=== PATIENT | male | born 1960 | race Caucasian/White ===

== ENCOUNTER → 2019-07-12 | Outpatient (CLI) | payer OTHER ==
[2019-07-12 18:56] LABS: Iron Saturation 55.32 (15.00-50.00)
== END | disposition home or self-care (01) ==
LOC: LABWHC1 11:41
PROVIDERS: ATTEND Family Medicine
DX: E61.1 Iron deficiency (principal)
CPT/HCPCS: 36415; 83540; 83550

== ENCOUNTER 2020-09-25 08:01 | Emergency (ER) | payer OTHER ==
[2020-09-25 08:05] VITALS: TEMP 97.6
[2020-09-25] MEDS ORDERED: SODIUM CHLORIDE 0.9% 1,000 ML IV STA (08:21)
--- NOTE | 2020-09-25 08:28 | ED ---
Dizziness HPI - General Chief Complaint: Dizziness Stated Complaint: Double Vision, Dizziness Time Seen by Provider: 09/25/20 08:08 Source: patient, family, RN notes reviewed Mode of arrival: ambulatory Limitations: no limitations - History of Present Illness Initial Comments: This is a 60-year-old male with a history of chronic A. 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 He states he's had intermittent episodes this in the past for this was the most prominent.no recent fevers chills nausea vomiting sweats no focal weakness no further symptoms. He does say he's had a vague frontal discomfort to his forehead area he believes secondary to sinuses. No other modifying factors MD Complaint: dizziness, other - Related Data Home Medications Medication Instructions Recorded Confirmed Pravastatin Sodium [Pravachol] 40 mg PO HS 08/23/18 09/25/20 lisinopriL 20 mg PO HS 05/16/19 09/25/20 Apixaban [Eliquis] 2.5 mg PO BID 09/25/20 09/25/20 Previous Rx's Medication Instructions Recorded Amoxicillin/Potassium Clav 1 tab PO Q12HR 1 Days #20 tab 09/25/20 [Augmentin 875-125 Tablet] Meclizine [Antivert] 25 mg PO TID #20 tab 09/25/20 Allergies Allergy/AdvReac Type Severity Reaction Status Date / Time No Known Allergies Allergy Verified 09/25/20 09:06 Review of Systems ROS Statement: Those systems with pertinent positive or pertinent negative responses have been documented in the HPI. ROS Other: All systems not noted in ROS Statement are negative. Past Medical History Past Medical History: GERD/Reflux, Hyperlipidemia, Hypertension Additional Past Medical History / Comment(s): fusion of bicuspid valve History of Any Multi-Drug Resistant Organisms: None Reported Past Surgical History: Appendectomy Additional Past Surgical History / Comment(s): deviated septum repair Past Anesthesia/Blood Transfusion Reactions: No Reported Reaction Past Psychological History: No Psychological Hx Reported Smoking Status: Former smoker Past Alcohol Use History: Occasional Past Drug Use History: None Reported General Exam - General Exam Comments Initial Comments: this is a well-developed well-nourished awake alert oriented times 3 male Limitations: no limitations General appearance: alert, in no apparent distress Head exam: Present: atraumatic, normocephalic, normal inspection Eye exam: Present: normal appearance, PERRL, EOMI. Absent: scleral icterus, conjunctival injection, periorbital swelling ENT exam: Present: normal exam, mucous membranes moist Neck exam: Present: normal inspection, full ROM, other (no stridor JVD or bruits). Absent: tenderness, meningismus, lymphadenopathy Respiratory exam: Present: normal lung sounds bilaterally. Absent: respiratory distress, wheezes, rales, rhonchi, stridor Cardiovascular Exam: Present: normal rhythm, irregular rhythm. Absent: systolic murmur, diastolic murmur, rubs, gallop, clicks GI/Abdominal exam: Present: soft, normal bowel sounds. Absent: distended, tenderness, guarding, rebound, rigid Extremities exam: Present: normal inspection, full ROM, normal capillary refill. Absent: tenderness, pedal edema, joint swelling, calf tenderness Back exam: Present: normal inspection Neurological exam: Present: alert, oriented X3, CN II-XII intact Psychiatric exam: Present: normal affect, normal mood Skin exam: Present: warm, dry, intact, normal color. Absent: rash Course Vital Signs 09/25/20 09/25/20 08:01 09:08 Temperature 97.6 F Pulse Rate 70 57 L Respiratory 18 16 Rate Blood Pressure 169/88 122/70 O2 Sat by Pulse 98 96 Oximetry EKG Findings - EKG Results: EKG: interpreted by OBIE, sinus rhythm (sinus rhythm a 62 CA interval 164 QRS 104 QT/QTC 362/367 nonspecific T-wave configuration inferior leads) Medical Decision Making - Medical Decision Making I did discuss Pfizer the patient's . Patient had no further symptoms. The presentation consistent with a vertiginous etiology. Additionally the patient does demonstrate evidence of sinusitis. He will be placed on appropriate medication is a follow-up with his doctor and return when necessary - Lab Data Result diagrams: 09/25/20 08:38 09/25/20 08:38 Lab Results 09/25/20 09/25/20 09/25/20 Range/Units 08:38 08:38 08:38 WBC 4.9 (3.8-10.6) k/uL RBC 5.20 (4.30-5.90) m/uL Hgb 16.0 (13.0-17.5) gm/dL Hct 47.6 (39.0-53.0) % MCV 91.5 (80.0-100.0) fL MCH 30.7 (25.0-35.0) pg MCHC 33.5 (31.0-37.0) g/dL RDW 13.1 (11.5-15.5) % Plt Count 183 (150-450) k/uL Neutrophils % 60 % Lymphocytes % 22 % Monocytes % 8 % Eosinophils % 7 % Basophils % 2 % Neutrophils # 2.9 (1.3-7.7) k/uL Lymphocytes # 1.1 (1.0-4.8) k/uL Monocytes # 0.4 (0-1.0) k/uL Eosinophils # 0.3 (0-0.7) k/uL Basophils # 0.1 (0-0.2) k/uL Sodium 139 (137-145) mmol/L Potassium 4.2 (3.5-5.1) mmol/L Chloride 108 H (98-107) mmol/L Carbon Dioxide 23 (22-30) mmol/L Anion Gap 8 mmol/L BUN 18 (9-20) mg/dL Creatinine 1.17 (0.66-1.25) mg/dL Est GFR (CKD-EPI)AfAm 79 (>60 ml/min/1.73 sqM) Est GFR (CKD-EPI)NonAf 68 (>60 ml/min/1.73 sqM) Glucose 123 H (74-99) mg/dL Calcium 10.0 (8.4-10.2) mg/dL Magnesium 1.8 (1.6-2.3) mg/dL Total Bilirubin 0.8 (0.2-1.3) mg/dL AST 32 (17-59) U/L ALT 28 (4-49) U/L Alkaline Phosphatase 62 (38-126) U/L Creatine Kinase 108 (55-170) U/L Troponin I <0.012 (0.000-0.034) ng/mL Total Protein 7.4 (6.3-8.2) g/dL Albumin 4.4 (3.5-5.0) g/dL - Radiology Data Radiology results: report reviewed (I did review the imaging and report or is evidence of paranasal ethmoid a mastoid sinusitis.), image reviewed Disposition Clinical Impression: Benign paroxysmal positional vertigo, Sinusitis, acute Disposition: HOME SELF-CARE Condition: Good Instructions (If sedation given, give patient instructions): Dizziness (ED), Rhinosinusitis (ED), Vertigo (ED) Additional Instructions: Description sent here preferred [facility] Prescriptions: Meclizine [Antivert] 25 mg PO TID #20 tab Amoxicillin/Potassium Clav [Augmentin 875-125 Tablet] 1 tab PO Q12HR 1 Days #20 tab Is patient prescribed a controlled substance at d/c from ED?: No Referrals: Twyla Bergeron MD [Primary Care Provider] - 1-2 days
[2020-09-25 08:46] LABS: Basophils # (A) 0.1 k/uL (0-0.2); Basophils % (A) 2 %; Eosinophils # (A) 0.3 k/uL (0-0.7); Eosinophils % (A) 7 %; HCT 47.6 % (39.0-53.0); Lymphocytes # (A) 1.1 k/uL (1.0-4.8); Lymphocytes % (A) 22 %; MCH 30.7 pg (25.0-35.0); MCHC 33.5 g/dL (31.0-37.0); MCV 91.5 fL (80.0-100.0); Mean Platelet Volume 8.3; Monocytes # (A) 0.4 k/uL (0-1.0); Monocytes % (A) 8 %; Neutrophils # (A) 2.9 k/uL (1.3-7.7); Neutrophils % (A) 60 %; Platelet Count 183 k/uL (150-450); RDW 13.1 % (11.5-15.5); WBC 4.9 k/uL (3.8-10.6)
--- NOTE | 2020-09-25 09:03 | CT ---
EXAMINATION TYPE: CT brain wo con DATE OF EXAM: 09/25/2020 COMPARISON: None HISTORY: Dizziness, LY CT DLP: 1229.4 mGycm Automated exposure control for dose reduction was used. Helical imaging through the brain FINDINGS: There is mild cortical atrophy. There is no hemorrhage or hydrocephalus. Calvarium is intact. Paranas al sinuses and mastoid air cells are remarkable for some inflammatory change in ethmoid air cells. Or bits show symmetric appearance. IMPRESSION: MILD SINUS DISEASE. NO ACUTE BRAIN ABNORMALITY EVIDENT.
[2020-09-25 09:06] LABS: Albumin 4.4 g/dL (3.5-5.0); Magnesium 1.8 mg/dL (1.6-2.3); Potassium 4.2 mmol/L (3.5-5.1); Total Bilirubin 0.8 mg/dL (0.2-1.3); Total Protein 7.4 g/dL (6.3-8.2)
[2020-09-25 09:10] VITALS: RESP 16
[2020-09-25 10:23] VITALS: BP 128/71; PULSE 54
== END 2020-09-25 10:31 | disposition home or self-care (01) ==
LOC: EC 08:01
DX: H81.10 Benign paroxysmal vertigo, unspecified ear (principal); J01.90 Acute sinusitis, unspecified; I10 Essential (primary) hypertension; I48.20 Chronic atrial fibrillation, unspecified; E78.5 Hyperlipidemia, unspecified; Z79.01 Long term (current) use of anticoagulants; Z79.899 Other long term (current) drug therapy
CPT/HCPCS: 36415; 70450; 80053; 82550; 83735; 84484; 85025; 93005; 96360; 99284

== ENCOUNTER 2021-03-26 09:26 | Outpatient (CLI) | payer MEDICAID ==
[~2021-03-26 09:26] MED LIST: SODIUM CHLORIDE 0.9% 500 ML 500 ML in EMPTY BAG 1 BAG IV PRN
[2021-03-26 09:45] VITALS: RESP 16; TEMP 97.8
[2021-03-26 10:03] LABS: Basophils # (A) 0.1 k/uL (0-0.2); Basophils % (A) 1 %; Eosinophils # (A) 0.3 k/uL (0-0.7); Eosinophils % (A) 5 %; HCT 44.9 % (39.0-53.0); HGB 15.1 gm/dL (13.0-17.5); Lymphocytes # (A) 1.9 k/uL (1.0-4.8); Lymphocytes % (A) 32 %; MCH 31.3 pg (25.0-35.0); MCHC 33.7 g/dL (31.0-37.0); Mean Platelet Volume 8.5; Monocytes # (A) 0.4 k/uL (0-1.0); Monocytes % (A) 6 %; Neutrophils # (A) 3.4 k/uL (1.3-7.7); Neutrophils % (A) 54 %; Platelet Count 212 k/uL (150-450); RBC 4.83 m/uL (4.30-5.90); RDW 12.6 % (11.5-15.5); WBC 6.2 k/uL (3.8-10.6)
[2021-03-26 10:36] VITALS: BP 119/80; PULSE 55
== END 2021-08-01 08:48 | disposition home or self-care (01) ==
LOC: PROCWHC3 09:26
PROVIDERS: ATTEND Family Medicine
DX: E83.119 Hemochromatosis, unspecified (principal); Z87.891 Personal history of nicotine dependence
CPT/HCPCS: 36415; 82728; 85025; 99195

== ENCOUNTER → 2021-04-11 | Outpatient (CLI) | payer MEDICAID ==
--- NOTE | 2021-04-11 07:30 | US ---
EXAMINATION TYPE: US liver DATE OF EXAM: 04/11/2021 COMPARISON: NONE CLINICAL HISTORY: E83.119 hemochromatosis. EXAM MEASUREMENTS: Liver Length: 15.9 cm Gallbladder Wall: 0.2 cm CBD: 0.3 cm Right Kidney: 11.4 x 5.7 x 4.6 cm Pancreas: wnl tail obscured by overlying bowel gas Liver: wnl Gallbladder: wnl Evidence for sonographic Sellers's sign: no CBD: wnl Right Kidney: wnl IMPRESSION: No distinct abnormality identified at this time.
== END | disposition home or self-care (01) ==
LOC: RADUSWWP 06:56
PROVIDERS: ATTEND Family Medicine
DX: E83.119 Hemochromatosis, unspecified (principal)
CPT/HCPCS: 76705

== ENCOUNTER → 2021-05-07 | Outpatient (CLI) | payer MEDICAID ==
[2021-05-07 09:32] VITALS: RESP 16; TEMP 98
[2021-05-07 09:47] LABS: Basophils # (A) 0.1 k/uL (0-0.2); Basophils % (A) 1 %; Eosinophils # (A) 0.3 k/uL (0-0.7); Eosinophils % (A) 6 %; HCT 46.9 % (39.0-53.0); Lymphocytes # (A) 1.9 k/uL (1.0-4.8); Lymphocytes % (A) 32 %; MCH 31.2 pg (25.0-35.0); MCHC 34.2 g/dL (31.0-37.0); MCV 91.3 fL (80.0-100.0); Mean Platelet Volume 8.3; Monocytes # (A) 0.4 k/uL (0-1.0); Monocytes % (A) 7 %; Neutrophils # (A) 3.1 k/uL (1.3-7.7); Neutrophils % (A) 52 %; Platelet Count 206 k/uL (150-450); RBC 5.13 m/uL (4.30-5.90); RDW 12.5 % (11.5-15.5); WBC 5.9 k/uL (3.8-10.6)
[2021-05-07 10:20] VITALS: BP 120/80; PULSE 58
== END ==
LOC: PROCWHC3 09:22
PROVIDERS: ATTEND Family Medicine
DX: E83.119 Hemochromatosis, unspecified (principal); Z87.891 Personal history of nicotine dependence
CPT/HCPCS: 36415; 82728; 85025; 99195

== ENCOUNTER → 2021-08-19 | Outpatient (CLI) | payer MEDICAID ==
[2021-08-19 09:55] VITALS: TEMP 98
[2021-08-19 10:25] LABS: Basophils # (A) 0.1 k/uL (0-0.2); Basophils % (A) 1 %; Eosinophils # (A) 0.5 k/uL (0-0.7); Eosinophils % (A) 8 %; HCT 47.6 % (39.0-53.0); HGB 16.5 gm/dL (13.0-17.5); Lymphocytes % (A) 31 %; MCH 31.8 pg (25.0-35.0); MCHC 34.6 g/dL (31.0-37.0); MCV 91.8 fL (80.0-100.0); Mean Platelet Volume 8.6; Monocytes # (A) 0.4 k/uL (0-1.0); Monocytes % (A) 6 %; Neutrophils # (A) 3.4 k/uL (1.3-7.7); Neutrophils % (A) 53 %; Platelet Count 220 k/uL (150-450); RBC 5.19 m/uL (4.30-5.90); RDW 12.8 % (11.5-15.5); WBC 6.4 k/uL (3.8-10.6)
[2021-08-19 10:49] VITALS: BP 112/74; PULSE 59; RESP 18
[2021-08-19 10:59] LABS: Albumin 4.4 g/dL (3.5-5.0); Calcium 10.2 mg/dL (8.4-10.2); Potassium 4.8 mmol/L (3.5-5.1); Total Bilirubin 1.1 mg/dL (0.2-1.3); Total Protein 7.2 g/dL (6.3-8.2)
[2021-08-19 21:53] LABS: % Iron Saturation 94.55 (15.00-50.00); Chol/HDL Ratio 3.31
[2021-08-19 22:01] LABS: Ferritin 36.9 ng/mL (22.0-322.0)
== END ==
LOC: PROCWHC3 09:28
PROVIDERS: ATTEND Family Medicine
DX: E83.119 Hemochromatosis, unspecified (principal); Z87.891 Personal history of nicotine dependence
CPT/HCPCS: 36415; 80053; 80061; 82728; 83540; 83550; 84443; 85025; 99195

== ENCOUNTER → 2021-10-16 | Outpatient (CLI) | payer MEDICAID ==
[2021-10-16 10:41] VITALS: BP 131/73; PULSE 59; RESP 16; TEMP 97.8
[2021-10-16 11:02] LABS: HCT 48.9 % (39.0-53.0); MCH 32.6 pg (25.0-35.0); MCHC 34.7 g/dL (31.0-37.0); MCV 93.9 fL (80.0-100.0); Mean Platelet Volume 8.8; Platelet Count 216 k/uL (150-450); RDW 12.4 % (11.5-15.5)
== END ==
LOC: PROCWHC3 10:28
PROVIDERS: ATTEND Family Medicine
DX: E83.119 Hemochromatosis, unspecified (principal); Z87.891 Personal history of nicotine dependence
CPT/HCPCS: 36415; 85027; 99195

== ENCOUNTER → 2022-07-02 | Outpatient (CLI) | payer MEDICAID ==
[2022-07-02 08:47] VITALS: RESP 16; TEMP 98.3
[2022-07-02 08:56] LABS: HCT 43.3 % (39.0-53.0); MCH 33.1 pg (25.0-35.0); MCHC 34.6 g/dL (31.0-37.0); MCV 95.6 fL (80.0-100.0); Mean Platelet Volume 8.9; Platelet Count 200 k/uL (150-450); RBC 4.53 m/uL (4.30-5.90); RDW 12.5 % (11.5-15.5)
[2022-07-02 09:35] VITALS: BP 128/75; PULSE 50
== END ==
LOC: PROCWHC3 08:33
PROVIDERS: ATTEND Family Medicine
DX: E83.119 Hemochromatosis, unspecified (principal); Z87.891 Personal history of nicotine dependence
CPT/HCPCS: 36415; 85027; 99195

== ENCOUNTER → 2022-08-18 | Outpatient (CLI) | payer MEDICAID | END | disposition home or self-care (01) | LOC: LABWHC1 07:42 | PROVIDERS: ATTEND Internal Medicine Interventional Cardiology | DX: Z53.9 Procedure and treatment not carried out, unspecified reason (principal) ==

== ENCOUNTER → 2023-09-02 | Outpatient (CLI) | payer MEDICAID ==
--- NOTE | 2023-09-02 09:15 | CT ---
EXAMINATION TYPE: CT sinus wo con CT DLP: 641.6 mGycm, Automated exposure control for dose reduction was used. DATE OF EXAM: 09/02/2023 8:10 AM COMPARISON: 09/25/2020 CT CLINICAL INDICATION:Male, 63 years old with history of J32.9 CHRONIC SINUSITIS, UNSPECIFIED; , chroni c sinusitis TECHNIQUE: Multiple thin axial images were obtained through the paranasal sinuses without the use of IV contrast. Additional coronal and sagittal reformatted images were submitted for evaluation. Contrast used: none Oral contrast used: none FINDINGS: Frontal sinuses: Normally developed with mucosal thickening most pronounced inferiorly and anteriorly .. Frontal Recess: Opacified bilaterally Maxillary Sinuses: Antrostomy changes bilaterally. Mucosal thickening of the left maxillary sinus. Maxillary Infundibula([facility]): Antrostomy changes bilaterally Ethmoid sinuses: Few opacified ethmoid air cells are present. Ethmoidal notch: Unprotected bilateral anterior ethmoidal arteries. Sphenoid sinuses: Normally developed and aerated. There is sellar sphenoid sinus pneumatization witho ut evidence of dehiscence. There is pneumatization of the anterior clinoid processes. No dehiscence o f carotid canal. No evidence of optic nerve dehiscence within the sphenoid sinus. No evidence of Onod i cells. Sphenoethmoidal recesses: Clear. Nasal septum: Within normal limits.. Nasal Turbinates: Within normal limits. Mastoid air cells & middle ears: The air cells are clear. The middle ears are grossly unremarkable. Modified Soft tissues & Brain: Partially seen without gross abnormality. Globes are intact. Other: Cribriform plate demonstrates symmetric Keros classification type 2 cribriform plate. No evidence of bony dehiscence of skull base. Lamina papyracea is intact without evidence of remote orbital fracture or orbital prolapse into the e thmoid sinus. IMPRESSION: Mild paranasal sinus disease with opacification of the bilateral frontal ethmoidal recesses. There is an antrostomy changes to the maxillary sinuses with mucosal thickening of the left maxillary sinus.
[2023-09-02 13:51] LABS: Basophils # (A) 0.11 X 10*3/uL (0.00-0.10); Basophils % (A) 1.6 %; Eosinophils % (A) 5.8 %; HCT 46.1 % (39.6-50.0); HGB 15.8 d/dL (13.0-17.0); Lymphocytes # (A) 2.18 X 10*3/uL (0.90-5.00); Lymphocytes % (A) 31.8 %; MCH 32.3 pg (27.0-32.0); MCHC 34.3 d/dL (32.0-37.0); MCV 94.3 FL (80.0-97.0); Mean Platelet Volume 10.6 FL (9.5-12.2); Monocytes # (A) 0.59 X 10*3/uL (0.20-1.00); Monocytes % (A) 8.6 %; NRBC Per 100 WBC 0 X 10*3/uL (0.00-0.01); Neutrophils # (A) 3.54 X 10*3/uL (1.80-7.70); Neutrophils % (A) 51.6 %; Platelet Count 259 X 10*3/uL (140-440); RBC 4.89 X 10*6/uL (4.40-5.60); RDW 11.9 % (11.5-14.5); WBC 6.86 X 10*3/uL (4.50-10.00)
[2023-09-02 13:58] LABS: % Iron Saturation 60.08 (15.00-50.00)
== END | disposition home or self-care (01) ==
LOC: RADCTMAIN 07:52
PROVIDERS: ATTEND Family Medicine
DX: J34.89 Other specified disorders of nose and nasal sinuses (principal); J32.0 Chronic maxillary sinusitis
CPT/HCPCS: 70486; 82728; 83540; 83550; 85025

== ENCOUNTER 2023-10-12 06:01 | Day surgery (SDC) | payer MEDICAID ==
[2023-10-12] MEDS ORDERED: LIDOCAINE 1% (10MG/ML) FOR IV START INTRADERMA PRN (06:40)
[2023-10-12] MEDS ORDERED: LACTATED RINGERS 1,000 ML IV SCH (06:40)
[2023-10-12 07:22] VITALS: BP 159/79; PULSE 57; RESP 16; TEMP 97.8
== END 2023-10-12 07:12 ==
LOC: OR 06:01
PROVIDERS: ATTEND Internal Medicine Cardiovascular Disease
DX: I35.2 Nonrheumatic aortic (valve) stenosis with insufficiency (principal)

== ENCOUNTER → 2023-10-21 | Outpatient (CLI) | payer MEDICAID ==
[2023-10-21 19:19] LABS: Basophils # (A) 0.07 X 10*3/uL (0.00-0.10); Basophils % (A) 1.1 %; Eosinophils # (A) 0.37 X 10*3/uL (0.04-0.35); Eosinophils % (A) 5.8 %; HCT 45.9 % (39.6-50.0); HGB 15.9 g/dL (13.0-17.0); Lymphocytes # (A) 2.07 X 10*3/uL (0.90-5.00); Lymphocytes % (A) 32.4 %; MCH 32.6 pg (27.0-32.0); MCHC 34.6 g/dL (32.0-37.0); MCV 94.3 FL (80.0-97.0); Mean Platelet Volume 10.6 FL (9.5-12.2); Monocytes # (A) 0.51 X 10*3/uL (0.20-1.00); NRBC Per 100 WBC 0 X 10*3/uL (0.00-0.01); Neutrophils # (A) 3.35 X 10*3/uL (1.80-7.70); Neutrophils % (A) 52.5 %; Platelet Count 205 X 10*3/uL (140-440); RBC 4.87 X 10*6/uL (4.40-5.60); WBC 6.38 X 10*3/uL (4.50-10.00)
[2023-10-21 20:34] LABS: % Iron Saturation 48.55 (15.00-50.00); Ferritin 72.7 ng/mL (22.0-322.0)
== END | disposition home or self-care (01) ==
LOC: LABWHC1 13:16
PROVIDERS: ATTEND Family Medicine
DX: E83.119 Hemochromatosis, unspecified (principal)
CPT/HCPCS: 36415; 82728; 83540; 83550; 85025

== ENCOUNTER 2024-01-04 06:04 | Day surgery (SDC) | payer MEDICAID, OTHER ==
[2023-12-29 11:12] VITALS: BMI 30.5
[~2024-01-04 06:04] MED LIST changes: +LACTATED RINGERS 1,000 ML IV SCH; +SODIUM CHLORIDE 0.9% 1,000 ML IV SCH; -SODIUM CHLORIDE 0.9% 500 ML 500 ML in EMPTY BAG 1 BAG IV PRN
[2024-01-04 07:20] VITALS: BP 110/64; PULSE 54; RESP 16; TEMP 97
== END 2024-01-04 07:11 ==
LOC: OR 06:04
PROVIDERS: ATTEND Internal Medicine Cardiovascular Disease
DX: Z53.8 Procedure and treatment not carried out for other reasons (principal); I48.0 Paroxysmal atrial fibrillation; E78.5 Hyperlipidemia, unspecified; I10 Essential (primary) hypertension; F17.210 Nicotine dependence, cigarettes, uncomplicated; Z82.49 Family history of ischemic heart disease and other diseases of the circulatory system; Z79.01 Long term (current) use of anticoagulants; Z79.899 Other long term (current) drug therapy

== ENCOUNTER → 2024-04-11 | Outpatient (CLI) | payer OTHER ==
[~2024-04-11] MED LIST changes: -LACTATED RINGERS 1,000 ML IV SCH; -SODIUM CHLORIDE 0.9% 1,000 ML IV SCH; +SODIUM CHLORIDE 0.9% 500 ML 500 ML in EMPTY BAG 1 BAG IV PRN
[2024-04-11 12:26] LABS: HCT 51.9 % (39.0-53.0); HGB 17.4 gm/dL (13.0-17.5); MCHC 33.4 g/dL (31.0-37.0); MCV 95.8 fL (80.0-100.0); Mean Platelet Volume 8.3; Platelet Count 235 k/uL (150-450); RBC 5.42 m/uL (4.30-5.90); RDW 12.4 % (11.5-15.5); WBC 7.5 k/uL (3.8-10.6)
[2024-04-11 12:43] VITALS: RESP 16; TEMP 98.5
[2024-04-11 13:29] VITALS: BP 118/76; PULSE 71
== END ==
LOC: PROCWHC3 12:03
PROVIDERS: ATTEND Family Medicine
DX: E83.119 Hemochromatosis, unspecified (principal); R94.4 Abnormal results of kidney function studies
CPT/HCPCS: 36415; 85027; 99195

== ENCOUNTER → 2024-06-21 | Outpatient (CLI) | payer OTHER ==
[2024-06-21 14:28] LABS: Basophils # (A) 0.1 k/uL (0-0.2); Basophils % (A) 1 %; Eosinophils # (A) 0.4 k/uL (0-0.7); Eosinophils % (A) 5 %; HCT 45.2 % (39.0-53.0); Lymphocytes # (A) 2.2 k/uL (1.0-4.8); Lymphocytes % (A) 30 %; MCH 32.4 pg (25.0-35.0); MCHC 33.3 g/dL (31.0-37.0); MCV 97.2 fL (80.0-100.0); Mean Platelet Volume 8.1; Monocytes # (A) 0.4 k/uL (0-1.0); Monocytes % (A) 6 %; Neutrophils # (A) 4.2 k/uL (1.3-7.7); Neutrophils % (A) 57 %; Platelet Count 242 k/uL (150-450); RBC 4.65 m/uL (4.30-5.90); RDW 12.1 % (11.5-15.5); WBC 7.3 k/uL (3.8-10.6)
[2024-06-21 15:07] VITALS: TEMP 98
[2024-06-21 15:08] VITALS: BP 128/82; PULSE 90; RESP 16
== END ==
LOC: PROCWHC3 14:00
PROVIDERS: ATTEND Family Medicine
DX: E83.119 Hemochromatosis, unspecified (principal); R94.4 Abnormal results of kidney function studies
CPT/HCPCS: 36415; 85025; 99195

== ENCOUNTER → 2024-08-03 | Outpatient (CLI) | payer OTHER ==
[2024-08-03 13:43] VITALS: BP 123/71; PULSE 68; RESP 16; TEMP 97.4
[2024-08-03 13:56] LABS: HCT 45.9 % (39.0-53.0); HGB 15.5 gm/dL (13.0-17.5); MCHC 33.9 g/dL (31.0-37.0); MCV 97.5 fL (80.0-100.0); Mean Platelet Volume 8.6; Platelet Count 229 k/uL (150-450); RDW 12.2 % (11.5-15.5); WBC 5.9 k/uL (3.8-10.6)
== END ==
LOC: PROCWHC3 13:27
PROVIDERS: ATTEND Family Medicine
DX: E83.119 Hemochromatosis, unspecified (principal); I50.9 Heart failure, unspecified; I48.91 Unspecified atrial fibrillation
CPT/HCPCS: 36415; 85027; 99195

== ENCOUNTER → 2024-10-24 | Outpatient (CLI) | payer OTHER ==
[~2024-10-24] MED LIST changes: +SODIUM CHLORIDE 0.9% 250 ML in EMPTY BAG 1 BAG IV PRN
[2024-10-24 13:20] VITALS: BP 122/72; PULSE 54; RESP 15; TEMP 97.9
[2024-10-24 13:21] LABS: HCT 45.5 % (39.0-53.0); HGB 15.6 gm/dL (13.0-17.5); MCH 32.9 pg (25.0-35.0); MCHC 34.3 g/dL (31.0-37.0); Mean Platelet Volume 8.2; Platelet Count 218 k/uL (150-450); RBC 4.74 m/uL (4.30-5.90); RDW 12.2 % (11.5-15.5); WBC 7.6 k/uL (3.8-10.6)
== END ==
LOC: PROCWHC3 12:49
PROVIDERS: ATTEND Family Medicine
DX: E83.119 Hemochromatosis, unspecified (principal)
CPT/HCPCS: 36415; 85027; 99195

== ENCOUNTER → 2024-12-05 | Outpatient (CLI) | payer BC, OTHER ==
[2024-12-05 12:58] VITALS: RESP 16; TEMP 98.1
[2024-12-05 13:06] LABS: HCT 44.7 % (39.0-53.0); HGB 15.7 gm/dL (13.0-17.5); MCHC 35.1 g/dL (31.0-37.0); MCV 93.8 fL (80.0-100.0); Mean Platelet Volume 8.2; Platelet Count 256 k/uL (150-450); RBC 4.76 m/uL (4.30-5.90); RDW 12.8 % (11.5-15.5)
[2024-12-05 13:40] VITALS: BP 137/85; PULSE 52
== END ==
LOC: PROCWHC3 12:46
PROVIDERS: ATTEND Family Medicine
DX: E83.119 Hemochromatosis, unspecified (principal); I10 Essential (primary) hypertension; I48.91 Unspecified atrial fibrillation
CPT/HCPCS: 36415; 85027; 99195

== ENCOUNTER → 2025-05-29 | Outpatient (CLI) | payer BC ==
[2025-05-29 13:06] VITALS: RESP 16; TEMP 97.1
[2025-05-29 13:16] LABS: Basophils # (A) 0.08 10*3/uL (0.00-0.10); Basophils % (A) 1.1 %; Eosinophils # (A) 0.35 10*3/uL (0.04-0.35); Eosinophils % (A) 4.7 %; HCT 44.3 % (39.6-50.0); HGB 15.8 g/dL (13.0-17.0); Lymphocytes # (A) 2.25 10*3/uL (0.90-5.00); Lymphocytes % (A) 30.4 %; MCH 32.8 pg (27.0-32.0); MCHC 35.7 g/dL (32.0-37.0); MCV 91.9 fL (80.0-97.0); Mean Platelet Volume 10.3 fL (9.5-12.2); Monocytes # (A) 0.48 10*3/uL (0.20-1.00); Monocytes % (A) 6.5 %; Neutrophils # (A) 4.21 10*3/uL (1.80-7.70); Neutrophils % (A) 56.9 %; Platelet Count 201 10*3/uL (140-440); RBC 4.82 10*6/uL (4.40-5.60); RDW 11.9 % (11.5-14.5)
[2025-05-29 13:53] VITALS: BP 118/63; PULSE 55
[2025-05-29 16:08] LABS: % Iron Saturation 38.33 (15.00-50.00); Ferritin 88.3 ng/mL (22.0-322.0)
== END ==
LOC: PROCWHC3 12:57
PROVIDERS: ATTEND Internal Medicine Hematology & Oncology
DX: E83.119 Hemochromatosis, unspecified (principal)
CPT/HCPCS: 36415; 82728; 83540; 83550; 85025; 99195